=== PATIENT | female | born 1970 | race Caucasian/White ===

== ENCOUNTER 2017-12-24 21:45 | Observation (INO) | payer BC, SELFPAY ==
[2017-12-24 21:51] VITALS: BP 162/114; PULSE 112; RESP 14; TEMP 36.6; O2SAT 98; BMI 47.2
--- NOTE | 2017-12-24 22:03 | CT_ITS ---
CT abdomen pelvis wo con COMPARISON: None HISTORY: Abdominal pain nausea TECHNIQUE: Multiaxial scans obtained from hemidiaphragms the pelvic floor and were performed without IV or oral contrast. Sagittal and coronal reformats were evaluated as well. FINDINGS: The lower lung posada are clear. The liver spleen stomach and pancreas appear grossly normal. There are retained food particles within the stomach. The gallbladder somewhat contracted containing multiple gallstones. The adrenal glands are normal. The kidneys are normal in size and there are no calculi and is no obstructive uropathy. Small bowel appears normal. The appendix is normal. There is a large amount stool in the cecum and ascending colon and proximal transverse colon. There is mild diffuse diverticulosis of the sigmoid colon without diverticulitis. There is been previous hysterectomy. Urinary bladder is partially decompressed but otherwise appears normal. There is no free fluid in the pelvis. IMPRESSION: Obvious cholelithiasis, no other acute abdominal or pelvic pathology identified, I agree the [facility] report
[2017-12-24 22:20] LABS: Microscopic, Urine URINE MICROSCOPIC (MICROSCOPIC)
[2017-12-24 22:24] LABS: Appearance,Urine CLEAR (Clear); Bilirubin,Urine Negative (Negative); Blood, Urine Negative (Negative); Color,Urine YELLOW (Yellow); Glucose,Urine (UA) Negative (Negative); Ketones,Urine Negative (Negative); Leukocyte Esterase,Urine Negative (Negative); Nitrate,Urine Negative (Negative); Protein,Urine Negative (Negative); Urobilinogen,Urine 0.2 EU/dl (0.2)
[2017-12-24 22:26] LABS: Basophils # 0.1 K/mm3 (0-0.2); Basophils % 0.3 % (0.1-2.0); Eosinophils # 0.1 K/mm3 (0.0-0.4); Eosinophils % 0.8 % (0.1-12.0); Hemoglobin 15.5 g/dL (12.2-16.2); Lymphocytes # 3.9 K/mm3 (0.7-4.5); Lymphocytes % 25.2 K/mm3 (10-50); Mean Corpuscular HGB Conc 33.7 g/dL (31.8-35.4); Mean Corpuscular Hemoglobin 30.6 pg (27.0-31.2); Mean Corpuscular Volume 90.8 fl (81-99); Monocytes # 0.7 K/mm3 (0.1-1.0); Monocytes % 4.4 % (1.7-9.3); Neutrophils # 10.7 K/mm3 (1.8-7.8); Neutrophils % 69.3 % (37.0-80.0); Platelet Count 376 K/mm3 (142-424); Red Blood Count 5.06 M/mm3 (4.20-5.40); Red Cell Distribution Width 13.4 % (11.5-17.5); White Blood Count 15.4 K/mm3 (4.8-10.8)
--- NOTE | 2017-12-24 22:29 | PC.NURSE ---
TO RADIOLOGY PER W/C.
[2017-12-24 22:30] LABS: Chloride 102 mmol/L (98-107)
--- NOTE | 2017-12-24 22:33 | HMH.EDGENADL ---
ED Disposition Clinical Impression: Cholecystitis Disposition: Admitted as Observation Condition on Discharge: Good Referrals: Andrew De La Paz [Primary Care Provider] - - Critical Care Critical Care Time: No Attestation: On 12/24/17, the high probability of a clinically significant, sudden or life threatening deterioration of the following system(s) required my full and direct attention, intervention and personal management. The time I documented below is in addition to time spent performing reported procedures but includes the following listed in this critical care notation. Medical Decision Making - Medical Records Medical records reviewed: Yes: I reviewed the patient's medical records. Vital Signs: 12/24/17 21:51 12/24/17 23:32 Temperature 97.8 F Temperature Source Oral Pulse Rate [Right Brachial] 112 H 82 Respiratory Rate 14 24 Blood Pressure [Right Arm] 162/114 119/83 Blood Pressure Mean [Right Arm] 130 95 Blood Pressure Source [Right Arm] Automatic Cuff Automatic Cuff Blood Pressure Position [Right Arm] Supine Sitting 02 Sat by Pulse Oximetry 98 98 Oxygen Delivery Method Room Air Room Air - Lab Data Lab results reviewed: Yes: I reviewed the patient's lab results. Lab Results 12/24/17 22:10: WBC 15.4 H, RBC 5.06, Hgb 15.5, Hct 46.0, MCV 90.8, MCH 30.6, MCHC 33.7, RDW 13.4, Plt Count 376, MPV 8.0, Neut % (Auto) 69.3, Lymph % (Auto) 25.2, [place] % (Auto) 4.4, Eos % (Auto) 0.8, Baso % (Auto) 0.3, Neut # (Auto) 10.7 H, Lymph # (Auto) 3.9, [place] # (Auto) 0.7, Eos # (Auto) 0.1, Baso # (Auto) 0.1, Total Counted 100, Neutrophils % (Manual) 78 H, Band Neutrophils % 1.0, Lymphocytes % (Manual) 18, Monocytes % (Manual) 3, Platelet Estimate Normal, RBC Morphology Normal 12/24/17 22:10: Sodium 140, Potassium 4.1, Chloride 102, Carbon Dioxide 28, Anion Gap 14.1, BUN 11, Creatinine 0.71, Estimated Creat Clear 78, Estimated GFR 89, Est GFR ( Amer) 107, Glucose 102, Calcium 9.3, Total Bilirubin 0.3, AST 12 L, ALT 27, Alkaline Phosphatase 89, Total Protein 7.3, Albumin 4.0, Globulin 3.3 H, Albumin/Globulin Ratio 1.2, Amylase 32, Lipase 89 12/24/17 22:10: Total Creatine Kinase 36, CK-MB (CK-2) < 0.5, CK-MB (CK-2) Rel Index 1.4, Troponin I < 0.02 12/24/17 22:15: Urine Color Yellow, Urine Appearance Clear, Urine pH 7.0, Ur Specific [place] 1.010, Urine Protein Negative, Urine Glucose (UA) Negative, Urine Ketones Negative, Urine Blood Negative, Urine Nitrate Negative, Urine Bilirubin Negative, Urine Urobilinogen 0.2, Ur Leukocyte Esterase Negative, Urine WBC Occasional, Ur Squamous Epith Cells Occasional Result diagrams: 12/24/17 22:10 12/24/17 22:10 Orders (Tests/Meds): ED MEDICATIONS Discontinued Medications Generic Name Dose Route Start Last Admin Trade Name Freq PRN Reason Stop Dose Admin Ketorolac Tromethamine 30 mg 12/24/17 22:05 12/24/17 22:09 Toradol 30mg/Ml Vial IV 12/24/17 22:06 30 mg ONCE ONE Administration Morphine Sulfate 5 mg 12/24/17 23:13 12/24/17 23:28 Morphine 10mg/Ml Syringe IV 12/24/17 23:14 5 mg ONCE ONE Administration Ondansetron HCl 4 mg 12/24/17 22:05 12/24/17 22:09 Zofran 4mg/2ml Vial IV 12/24/17 22:06 4 mg ONCE ONE Administration Promethazine HCl 12.5 mg 12/24/17 23:13 12/24/17 23:28 Phenergan 25mg/Ml 1ml Vial IV 12/24/17 23:14 12.5 mg ONCE ONE Administration Sodium Chloride 25 ml 12/24/17 23:13 12/24/17 23:29 Sod Chloride 0.9% 25ml Bag IV 12/24/17 23:14 25 ml ONCE ONE Administration ORDERS Category Date Time Status CT abdomen pelvis wo con Stat Cat Scan 12/24/17 22:03 Taken 12-lead EKG Request [ECG Request by /Nse] Stat Y 12/24/17 22:05 Ordered - CT Data CT Scan: Abdomen, Pelvis Time Received: 23:[address] Reviewed: Yes: I have viewed the radiologist's interpretation Preliminary Findings: Abnormal - ECG Data Tracing #1 I reviewed this ECG and interpreted as documented below: Normal Sinus Rhythm:
[2017-12-24 22:36] LABS: Squamous Epithelial Cell,Urine Occasional #/hpf (0-5)
[2017-12-24 22:38] LABS: WBC,Urine Occasional #/hpf (0-3)
[2017-12-24 22:40] LABS: MANUAL DIFFERENTIAL MANUAL DIFFERENTIAL (MANUAL DIFF)
--- NOTE | 2017-12-24 22:40 | ED_ITS ---
ED Disposition Clinical Impression: Cholecystitis Disposition: Admitted as Observation Condition on Discharge: Good Referrals: Andrew De La Paz [Primary Care Provider] - - Critical Care Critical Care Time: No Attestation: On 12/24/17, the high probability of a clinically significant, sudden or life threatening deterioration of the following system(s) required my full and direct attention, intervention and personal management. The time I documented below is in addition to time spent performing reported procedures but includes the following listed in this critical care notation. Medical Decision Making - Medical Records Medical records reviewed: Yes: I reviewed the patient's medical records. Vital Signs: 12/24/17 21:51 12/24/17 23:32 Temperature 97.8 F Temperature Source Oral Pulse Rate [Right Brachial] 112 H 82 Respiratory Rate 14 24 Blood Pressure [Right Arm] 162/114 119/83 Blood Pressure Mean [Right Arm] 130 95 Blood Pressure Source [Right Arm] Automatic Cuff Automatic Cuff Blood Pressure Position [Right Arm] Supine Sitting 02 Sat by Pulse Oximetry 98 98 Oxygen Delivery Method Room Air Room Air - Lab Data Lab results reviewed: Yes: I reviewed the patient's lab results. Lab Results 12/24/17 22:10: WBC 15.4 H, RBC 5.06, Hgb 15.5, Hct 46.0, MCV 90.8, MCH 30.6, MCHC 33.7, RDW 13.4, Plt Count 376, MPV 8.0, Neut % (Auto) 69.3, Lymph % (Auto) 25.2, [place] % (Auto) 4.4, Eos % (Auto) 0.8, Baso % (Auto) 0.3, Neut # (Auto) 10.7 H, Lymph # (Auto) 3.9, [place] # (Auto) 0.7, Eos # (Auto) 0.1, Baso # (Auto) 0.1, Total Counted 100, Neutrophils % (Manual) 78 H, Band Neutrophils % 1.0, Lymphocytes % (Manual) 18, Monocytes % (Manual) 3, Platelet Estimate Normal, RBC Morphology Normal 12/24/17 22:10: Sodium 140, Potassium 4.1, Chloride 102, Carbon Dioxide 28, Anion Gap 14.1, BUN 11, Creatinine 0.71, Estimated Creat Clear 78, Estimated GFR 89, Est GFR ( Amer) 107, Glucose 102, Calcium 9.3, Total Bilirubin 0.3, AST 12 L, ALT 27, Alkaline Phosphatase 89, Total Protein 7.3, Albumin 4.0, Globulin 3.3 H, Albumin/Globulin Ratio 1.2, Amylase 32, Lipase 89 12/24/17 22:10: Total Creatine Kinase 36, CK-MB (CK-2) < 0.5, CK-MB (CK-2) Rel Index 1.4, Troponin I < 0.02 12/24/17 22:15: Urine Color Yellow, Urine Appearance Clear, Urine pH 7.0, Ur Specific [place] 1.010, Urine Protein Negative, Urine Glucose (UA) Negative, Urine Ketones Negative, Urine Blood Negative, Urine Nitrate Negative, Urine Bilirubin Negative, Urine Urobilinogen 0.2, Ur Leukocyte Esterase Negative, Urine WBC Occasional, Ur Squamous Epith Cells Occasional Result diagrams: 12/24/17 22:10 12/24/17 22:10 Orders (Tests/Meds): ED MEDICATIONS Discontinued Medications Generic Name Dose Route Start Last Admin Trade Name Stephenq PRN Reason Stop Dose Admin Ketorolac Tromethamine 30 mg 12/24/17 22:05 12/24/17 22:09 Toradol 30mg/Ml Vial IV 12/24/17 22:06 30 mg ONCE ONE Administration Morphine Sulfate 5 mg 12/24/17 23:13 12/24/17 23:28 Morphine 10mg/Ml Syringe IV 12/24/17 23:14 5 mg ONCE ONE Administration Ondansetron HCl 4 mg 12/24/17 22:05 12/24/17 22:09 Zofran 4mg/2ml Vial IV 12/24/17 22:06 4 mg ONCE ONE Administration Promethazine HCl 12.5 mg 12/24/17 23:13 12/24/17 23:28 Phenergan 25mg/Ml 1ml Vial IV 12/24/17 23:14 12.5 mg ONCE ONE Administration Sodium Chloride 25
[2017-12-24 22:43] LABS: Amylase 32 U/L (25-125); Blood Urea Nitrogen 11 mg/dL (7-18); Lipase 89 u/L (73-393)
--- NOTE | 2017-12-24 22:43 | PC.NURSE ---
BACK FROM RADIOLOGY PER W/C.
[2017-12-24 22:45] LABS: Alanine Aminotransferase 27 U/L (12-78); Albumin/Globulin Ratio 1.2 (1.1-1.8); Alkaline Phosphatase 89 U/L (46-116); Anion Gap 14.1 mEq/L (5-15); Aspartate Amino Transferase 12 U/L (15-37); Bilirubin,Total 0.3 mg/dL (0.2-1.0); Calcium 9.3 mg/dL (8.5-10.1); Carbon Dioxide 28 mmol/L (21.0-32.0); Creatinine Clearance Estimated 78 mL/min (0-300); Creatinine,Serum 0.71 mg/dL (0.55-1.02); Estimated Glomerular Filt Rate 89 ml/min (>60); GFR (African American) 107 ML/MIN (>60); Globulin 3.3 gm/dl (1.3-3.2); Glucose 102 mg/dL (74-106); Potassium 4.1 mmoL/L (3.5-5.1); Sodium 140 mmol/L (136-145); Total Protein,Serum 7.3 gm/dL (6.4-8.2)
[2017-12-24 22:53] LABS: Lymphocytes % 18 % (10-50); Monocytes % 3 % (2-9); Neutrophils % 78 % (42-76); Platelet Estimate Normal; RBC Morphology Normal; Total Cells Counted 100
[2017-12-24 22:58] LABS: Creatine Kinase 36 U/L (26-192); Troponin I < 0.02 ng/ml (0.00-0.06)
--- NOTE | 2017-12-24 23:23 | PC.NURSE ---
CASE DISCUSSED WITH DR EDEN
[2017-12-24 23:32] VITALS: BP 119/83; PULSE 82; RESP 24; O2SAT 98
[2017-12-24 23:39] LABS: CKMB Relative Index 1.4 U/L (0-4.0); Creatine Kinase MB < 0.5 mg/ml (0.0-3.6)
[2017-12-25] VITALS (7 sets, daily range): BP systolic 109–133; BP diastolic 63–91; PULSE 63–78; RESP 18–20; TEMP 36.4–36.6; O2SAT 96–99; BMI 42.9
--- NOTE | 2017-12-25 03:11 | PC.NURSE ---
SHE IS A&OX3. AMBULATES INDEPENDENTLY. INDEPENDENT WITH ADLS. REPORTS ABDOMINAL PAIN IN THE MIDEPIGASTRIC AREA BUT STATES THAT HER ABDOMEN IS TENDER ALL OVER. SHE REPORTS THE PAIN RADIATES FROM HER ABDOMEN TO HER BACK AND THAT IT STARTED AT ABOUT 1300 ON 12/24 AND HAS NOT STOPPED. SHE HAS RECEIVED PRN PAIN MEDICATION AND ZOFRAN FOR NAUSEA. NO VOMITING. REPORTS HER LAST BM WAS ON 12/23 AND WAS NORMAL. SHE IS NPO FOR A DR. COOK CONSULT.
[2017-12-25 06:06] LABS: Basophils % 0.4 % (0.1-2.0); Eosinophils # 0.2 K/mm3 (0.0-0.4); Eosinophils % 1.7 % (0.1-12.0); Hematocrit 43.1 % (37.0-47.0); Lymphocytes # 3.9 K/mm3 (0.7-4.5); Lymphocytes % 37.2 K/mm3 (10-50); Mean Corpuscular HGB Conc 32.4 g/dL (31.8-35.4); Mean Corpuscular Hemoglobin 29.7 pg (27.0-31.2); Mean Corpuscular Volume 91.7 fl (81-99); Mean Platelet Volume 7.9 fl (7.4-10.4); Monocytes # 0.5 K/mm3 (0.1-1.0); Neutrophils # 5.9 K/mm3 (1.8-7.8); Neutrophils % 55.7 % (37.0-80.0); Platelet Count 296 K/mm3 (142-424); Red Cell Distribution Width 13.5 % (11.5-17.5); White Blood Count 10.6 K/mm3 (4.8-10.8)
--- NOTE | 2017-12-25 06:08 | PC.NURSE ---
PT IS BELCHING FREQUENTLY.
[2017-12-25 06:21] LABS: Alanine Aminotransferase 23 U/L (12-78); Albumin Level 3.6 gm/dL (3.4-5.0); Albumin/Globulin Ratio 1.1 (1.1-1.8); Alkaline Phosphatase 75 U/L (46-116); Anion Gap 9.5 mEq/L (5-15); Aspartate Amino Transferase 10 U/L (15-37); Bilirubin,Total 0.3 mg/dL (0.2-1.0); Blood Urea Nitrogen 12 mg/dL (7-18); Calcium 8.8 mg/dL (8.5-10.1); Carbon Dioxide 30 mmol/L (21.0-32.0); Chloride 103 mmol/L (98-107); Creatinine Clearance Estimated 89 mL/min (0-300); Creatinine,Serum 0.68 mg/dL (0.55-1.02); Estimated Glomerular Filt Rate 93 ml/min (>60); GFR (African American) 113 ML/MIN (>60); Globulin 3.3 gm/dl (1.3-3.2); Glucose 98 mg/dL (74-106); Potassium 3.5 mmoL/L (3.5-5.1); Sodium 139 mmol/L (136-145); Total Protein,Serum 6.9 gm/dL (6.4-8.2)
--- NOTE | 2017-12-25 07:37 | HMH.HP ---
*Admission Date: 12/25/17 *Chief complaint: Abdominal pain *History of present illness: 47-year-old female with a 5 week history of abdominal pain in the epigastric, right upper quadrant, periumbilical area presented to the ER last night because of worsening pain. Patient states approximately 5 weeks ago she began having bouts of abdominal pain which she initially attributed to a stomach virus. However over the over the course of these last 5 weeks she has recurring bouts of pain with associated nausea. She does not vomit as she is not a puker . She denies change in bowel habits. On presentation to the emergency department she was in quite a bit of discomfort and there was difficulty controlling her pain. CT scan suggested gallstones. Dr. Zayas was contacted. Patient has been admitted for pain control and surgical evaluation. [facility] History Medical History: Reports:: Hypertension Denies:: Cancer, Diabetes Mellitus Type 1, Diabetes Mellitus Type 2, Internal Pacemaker, MRSA Laterality Cases: Right: Arthroscopy Knee Other Surgeries: Yes: Hysterectomy-Total. No: Pacemaker Amputation: No Fractures: No - *Social History Educational Level: Completed High School Smoking Status: Current every day smoker Tobacco Type: cigarettes # Packs/Day (cigarettes): 1 Alcohol Intake: never Occupational Status: unemployed Housing: house - Psychiatric History Expresses thoughts of harming self/others: None Suicide Plan Description: No Plan *Family Hx:: Coronary Artery Disease Review of Systems - Review of Systems Review of systems:: pertinent systems reviewed and negative unless documented below - *Cardiovascular Denies chest pain - *Respiratory Denies change in phlegm color, Denies chest congestion, Denies cough - *Gastrointestinal Reports abdominal pain, Reports belching, Reports bloating, Reports cramping, Reports heartburn, Reports nausea, Denies change in bowel habits, Denies change in stools, Denies coffee ground vomit, Denies constipation, Denies difficulty swallowing, Denies vomiting blood, Denies bright, red blood in stools, Denies black, tarry stools, Denies vomiting - *Neurologic Denies seizure-like activity Meds Home Medications Medication Instructions Recorded Confirmed Type Lisinopril [Lisinopril 20mg Tab] 20 mg PO DAILY 12/24/17 12/24/17 History Loratadine/Pseudoephedrine 1 each PO DAILY 12/24/17 12/24/17 History [Loratadine-D 24Hr Tablet] Allergies Allergy/AdvReac Type Severity Reaction Status Date / Time latex Allergy Mild Verified 12/24/17 22:01 Exam Vital signs and Labs for Last 24 Hours: Temp Pulse Resp BP Pulse Ox 97.8 F 78 18 119/84 98 12/25/17 00:51 12/25/17 00:51 12/25/17 00:51 12/25/17 00:51 12/25/17 02:07 Laboratory Results - last 24 hr 12/25/17 05:55: WBC 10.6 D, RBC 4.70, Hgb 14.0, Hct 43.1, MCV 91.7, MCH 29.7, MCHC 32.4, RDW 13.5, Plt Count 296, MPV 7.9, Neut % (Auto) 55.7, Lymph % (Auto) 37.2, [place] % (Auto) 5.0, Eos % (Auto) 1.7, Baso % (Auto) 0.4, Neut # (Auto) 5.9, Lymph # (Auto) 3.9, [place] # (Auto) 0.5, Eos # (Auto) 0.2, Baso # (Auto) 0.0 12/25/17 05:55: Sodium 139, Potassium 3.5, Chloride 103, Carbon Dioxide 30, Anion Gap 9.5, BUN 12, Creatinine 0.68, Estimated Creat Clear 89, Estimated GFR 93, Est GFR ( Amer) 113, Glucose 98, Calcium 8.8, Total Bilirubin 0.3, AST 10 L, ALT 23, Alkaline Phosphatase 75, Total Protein 6.9, Albumin 3.6, Globulin 3.3 H, Albumin/Globulin Ratio 1.1 I & O for Last 24 hours: Intake & Output 12/22/17 12/23/17 12/24/17 12/25/17 11:59 11:59 11:59 11:59 Intake Total 330 / 330 Balance 330 / 330 Narrative: Patient is sitting up in bed and appears uncomfortable. ENT exam is unremarkable. Lungs are clear to auscultation. Heart has a regular rate and rhythm. Abdomen is obese, soft with mild right sided periumbilical and epigastric tenderness. L sounds are present back is without CVA tenderness. H&P: Result
--- NOTE | 2017-12-25 07:41 | P.HP_ITS ---
*Admission Date: 12/25/17 *Chief complaint: Abdominal pain *History of present illness: 47-year-old female with a 5 week history of abdominal pain in the epigastric, right upper quadrant, periumbilical area presented to the ER last night because of worsening pain. Patient states approximately 5 weeks ago she began having bouts of abdominal pain which she initially attributed to a stomach virus. However over the over the course of these last 5 weeks she has recurring bouts of pain with associated nausea. She does not vomit as she is not a puker . She denies change in bowel habits. On presentation to the emergency department she was in quite a bit of discomfort and there was difficulty controlling her pain. CT scan suggested gallstones. Dr. Zayas was contacted. Patient has been admitted for pain control and surgical evaluation. [facility] History Medical History: Reports:: Hypertension Denies:: Cancer, Diabetes Mellitus Type 1, Diabetes Mellitus Type 2, Internal Pacemaker, MRSA Laterality Cases: Right: Arthroscopy Knee Other Surgeries: Yes: Hysterectomy-Total. No: Pacemaker Amputation: No Fractures: No - *Social History Educational Level: Completed High School Smoking Status: Current every day smoker Tobacco Type: cigarettes # Packs/Day (cigarettes): 1 Alcohol Intake: never Occupational Status: unemployed Housing: house - Psychiatric History Expresses thoughts of harming self/others: None Suicide Plan Description: No Plan *Family Hx:: Coronary Artery Disease Review of Systems - Review of Systems Review of systems:: pertinent systems reviewed and negative unless documented below - *Cardiovascular Denies chest pain - *Respiratory Denies change in phlegm color, Denies chest congestion, Denies cough - *Gastrointestinal Reports abdominal pain, Reports belching, Reports bloating, Reports cramping, Reports heartburn, Reports nausea, Denies change in bowel habits, Denies change in stools, Denies coffee ground vomit, Denies constipation, Denies difficulty swallowing, Denies vomiting blood, Denies bright, red blood in stools, Denies black, tarry stools, Denies vomiting - *Neurologic Denies seizure-like activity Meds Home Medications Medication Instructions Recorded Confirmed Type Lisinopril [Lisinopril 20mg Tab] 20 mg PO DAILY 12/24/17 12/24/17 History Loratadine/Pseudoephedrine 1 each PO DAILY 12/24/17 12/24/17 History [Loratadine-D 24Hr Tablet] Allergies Allergy/AdvReac Type Severity Reaction Status Date / Time latex Allergy Mild Verified 12/24/17 22:01 Exam Vital signs and Labs for Last 24 Hours: Temp Pulse Resp BP Pulse Ox 97.8 F 78 18 119/84 98 12/25/17 00:51 12/25/17 00:51 12/25/17 00:51 12/25/17 00:51 12/25/17 02:07 Laboratory Results - last 24 hr 12/25/17 05:55: WBC 10.6 D, RBC 4.70, Hgb 14.0, Hct 43.1, MCV 91.7, MCH 29.7, MCHC 32.4, RDW 13.5, Plt Count 296, MPV 7.9, Neut % (Auto) 55.7, Lymph % (Auto) 37.2, [place] % (Auto) 5.0, Eos % (Auto) 1.7, Baso % (Auto) 0.4, Neut # (Auto) 5.9 , Lymph # (Auto) 3.9, [place] # (Auto) 0.5, Eos # (Auto) 0.2, Baso # (Auto) 0.0 12/25/17 05:55: Sodium 139, Potassium 3.5, Chloride 103, Carbon Dioxide 30, Anion Gap 9.5, BUN 12, Creatinine 0.68, Estimated Creat Clear 89, Estimated GFR 93, Est GFR ( Amer) 113, Glucose 98, Calcium 8.8, Total Bilirubin 0.3, AST 10 L, ALT 23, Alkaline Phosphatase 75, Total Protein 6.9, Albumin 3.6, Globulin 3.3 H, Albumin/Globulin Ratio 1.1 I & O for Last
--- NOTE | 2017-12-25 08:00 | US_ITS ---
US gallbladder Ordering Physician: Quentin Alexandra MD Patient Age: 47 years: Female HISTORY: ITS.REASON: abd painabdominal pain nausea. CT last night suggesting gallstones TECHNIQUE: Right upper quadrant ultrasound COMPARISON : The prior study is titled, name differently in PACS and that was not available for comparison until a manual specific search performed (account administrator notified) FINDINGS Pancreas. Head body and medial tail grossly unremarkable. Liver. No focal lesions. No biliary ductal dilatation.. Gallbladder. Numerous Multiple shadowing gallstones. These are more pronounced than even on the previous CT which revealed nonshadowing gallstones. There is borderline gallbladder wall thickening. The common duct appears is generous but normal diameter measuring 5.5 mm at hilum of liver. Right kidney. The right kidney appears relatively small on the submitted ultrasound images measuring only 8.5 seem in length. With what appears to be mild diffuse cortical thinning. It did not have this appearance on yesterday's CT. But it measured 10 seem in length on the CT study. No hydronephrosis or mass. IMPRESSION 1 Cholelithiasis. Numerous a prominent shadowing stones in the gallbladder. Borderline gallbladder wall thickening 2. Common duct generous but normal diameter 5.5 mm at hilum of liver. Liver unremarkable with No extra hepatic biliary ductal dilatation
--- NOTE | 2017-12-25 11:18 | HMH.GSCON ---
*Admission Date: 12/25/17 *Chief complaint: Abdominal pain, nausea *History of present illness: Patient is a 47-year-old white female. For about 5 weeks she has had intermittent abdominal pain. This is mostly located in the supraumbilical region, epigastrium, and right upper quadrant. It has been intermittent and usually self-limited. However yesterday she had onset of pain. It was much more severe and persistent. She presented to the emergency department due to the severity of her pain. She was found to have a mild leukocytosis. She underwent CT scan which revealed findings suggestive of gallstones. Her pain was intractable and she was admitted for inpatient management for pain control. The pain has slightly improved since admission although she has required ongoing narcotics and anti-emetics. She underwent a gallbladder ultrasound this morning. Reading is pending. Review of Systems - Review of Systems Review of systems:: pertinent systems reviewed and negative unless documented below - *Neurologic Denies seizure-like activity [facility] History Medical History: Reports:: Hypertension Denies:: Cancer, Diabetes Mellitus Type 1, Diabetes Mellitus Type 2, Internal Pacemaker, MRSA Laterality Cases: Right: Arthroscopy Knee Other Surgeries: Yes: Hysterectomy-Total. No: Pacemaker Amputation: No Fractures: No - *Social History Educational Level: Completed High School Smoking Status: Current every day smoker Tobacco Type: cigarettes # Packs/Day (cigarettes): 1 Alcohol Intake: never Occupational Status: unemployed Housing: house - Psychiatric History Expresses thoughts of harming self/others: None Suicide Plan Description: No Plan *Family Hx:: Coronary Artery Disease Meds Home Medications Medication Instructions Recorded Confirmed Type Lisinopril [Lisinopril 20mg Tab] 20 mg PO DAILY 12/24/17 12/24/17 History Loratadine/Pseudoephedrine 1 each PO DAILY 12/24/17 12/24/17 History [Loratadine-D 24Hr Tablet] Allergies Allergy/AdvReac Type Severity Reaction Status Date / Time latex Allergy Mild Verified 12/24/17 22:01 Exam Vital signs and Labs for Last 24 Hours: Temp Pulse Resp BP Pulse Ox 97.5 F L 63 18 133/91 96 12/25/17 08:20 12/25/17 08:20 12/25/17 08:20 12/25/17 08:20 12/25/17 08:20 Laboratory Results - last 24 hr 12/25/17 05:55: WBC 10.6 D, RBC 4.70, Hgb 14.0, Hct 43.1, MCV 91.7, MCH 29.7, MCHC 32.4, RDW 13.5, Plt Count 296, MPV 7.9, Neut % (Auto) 55.7, Lymph % (Auto) 37.2, [place] % (Auto) 5.0, Eos % (Auto) 1.7, Baso % (Auto) 0.4, Neut # (Auto) 5.9, Lymph # (Auto) 3.9, [place] # (Auto) 0.5, Eos # (Auto) 0.2, Baso # (Auto) 0.0 12/25/17 05:55: Sodium 139, Potassium 3.5, Chloride 103, Carbon Dioxide 30, Anion Gap 9.5, BUN 12, Creatinine 0.68, Estimated Creat Clear 89, Estimated GFR 93, Est GFR ( Amer) 113, Glucose 98, Calcium 8.8, Total Bilirubin 0.3, AST 10 L, ALT 23, Alkaline Phosphatase 75, Total Protein 6.9, Albumin 3.6, Globulin 3.3 H, Albumin/Globulin Ratio 1.1 I & O for Last 24 hours: Intake & Output 12/22/17 12/23/17 12/24/17 12/25/17 11:59 11:59 11:59 11:59 Intake Total 390 / 390 Balance 390 / 390 - Constitutional mild distress - *Routine Respiratory Exam Present: wheezes - *Routine Cardiovascular Exam Present: RRR, Normal S1, Normal S2 - *Routine Abdominal Exam Present: soft, tenderness Comments: Patient has tenderness in the epigastrium and right upper quadrant with voluntary guarding without rebound. Results - Labs 12/25/17 05:55 12/25/17 05:55 Laboratory Results - last 24 hr 12/25/17 05:55: WBC 10.6 D, RBC 4.70, Hgb 14.0, Hct 43.1, MCV 91.7, MCH 29.7, MCHC 32.4, RDW 13.5, Plt Count 296, MPV 7.9, Neut % (Auto) 55.7, Lymph % (Auto) 37.2, [place] % (Auto) 5.0, Eos % (Auto) 1.7, Baso % (Auto) 0.4, Neut # (Auto) 5.9, Lymph # (Auto) 3.9, [place] # (Auto) 0.5, Eos # (Auto) 0.2, Baso # (Auto) 0.0 12/25/17 05:55: Sodium 139, Potassium 3.5, Ch
--- NOTE | 2017-12-25 11:23 | P.CONS_ITS ---
*Admission Date: 12/25/17 *Chief complaint: Abdominal pain, nausea *History of present illness: Patient is a 47-year-old white female. For about 5 weeks she has had intermittent abdominal pain. This is mostly located in the supraumbilical region, epigastrium, and right upper quadrant. It has been intermittent and usually self-limited. However yesterday she had onset of pain. It was much more severe and persistent. She presented to the emergency department due to the severity of her pain. She was found to have a mild leukocytosis. She underwent CT scan which revealed findings suggestive of gallstones. Her pain was intractable and she was admitted for inpatient management for pain control. The pain has slightly improved since admission although she has required ongoing narcotics and anti-emetics. She underwent a gallbladder ultrasound this morning. Reading is pending. Review of Systems - Review of Systems Review of systems:: pertinent systems reviewed and negative unless documented below - *Neurologic Denies seizure-like activity [facility] History Medical History: Reports:: Hypertension Denies:: Cancer, Diabetes Mellitus Type 1, Diabetes Mellitus Type 2, Internal Pacemaker, MRSA Laterality Cases: Right: Arthroscopy Knee Other Surgeries: Yes: Hysterectomy-Total. No: Pacemaker Amputation: No Fractures: No - *Social History Educational Level: Completed High School Smoking Status: Current every day smoker Tobacco Type: cigarettes # Packs/Day (cigarettes): 1 Alcohol Intake: never Occupational Status: unemployed Housing: house - Psychiatric History Expresses thoughts of harming self/others: None Suicide Plan Description: No Plan *Family Hx:: Coronary Artery Disease Meds Home Medications Medication Instructions Recorded Confirmed Type Lisinopril [Lisinopril 20mg Tab] 20 mg PO DAILY 12/24/17 12/24/17 History Loratadine/Pseudoephedrine 1 each PO DAILY 12/24/17 12/24/17 History [Loratadine-D 24Hr Tablet] Allergies Allergy/AdvReac Type Severity Reaction Status Date / Time latex Allergy Mild Verified 12/24/17 22:01 Exam Vital signs and Labs for Last 24 Hours: Temp Pulse Resp BP Pulse Ox 97.5 F L 63 18 133/91 96 12/25/17 08:20 12/25/17 08:20 12/25/17 08:20 12/25/17 08:20 12/25/17 08:20 Laboratory Results - last 24 hr 12/25/17 05:55: WBC 10.6 D, RBC 4.70, Hgb 14.0, Hct 43.1, MCV 91.7, MCH 29.7, MCHC 32.4, RDW 13.5, Plt Count 296, MPV 7.9, Neut % (Auto) 55.7, Lymph % (Auto) 37.2, [place] % (Auto) 5.0, Eos % (Auto) 1.7, Baso % (Auto) 0.4, Neut # (Auto) 5.9 , Lymph # (Auto) 3.9, [place] # (Auto) 0.5, Eos # (Auto) 0.2, Baso # (Auto) 0.0 12/25/17 05:55: Sodium 139, Potassium 3.5, Chloride 103, Carbon Dioxide 30, Anion Gap 9.5, BUN 12, Creatinine 0.68, Estimated Creat Clear 89, Estimated GFR 93, Est GFR ( Amer) 113, Glucose 98, Calcium 8.8, Total Bilirubin 0.3, AST 10 L, ALT 23, Alkaline Phosphatase 75, Total Protein 6.9, Albumin 3.6, Globulin 3.3 H, Albumin/Globulin Ratio 1.1 I & O for Last 24 hours: Intake & Output 12/22/17 12/23/17 12/24/17 12/25/17 11:59 11:59 11:59 11:59 Intake Total 390 / 390 Balance 390 / 390 - Constitutional mild distress - *Routine Respiratory Exam Present: wheezes - *Routine Cardiovascular Exam Present: RRR, Normal S1, Normal S2 - *Routine Abdominal Exam Present: soft, tenderness Comments: Patient christianson
--- NOTE | 2017-12-25 15:29 | PC.NURSE ---
report called to adam @ [facility]. will transport pt to [facility] when room is available.
--- NOTE | 2017-12-25 16:31 | P.CONPHA_ITS ---
[facility] Pharmacy VTE Monitoring - Patient Demographics Admission date: 12/25/17 Report Date: 12/25/17 Time: 16:30 Allergies/Adverse Reactions: Patient Allergies latex Allergy (Mild, Verified 12/24/17 22:01) Height: 1.63 m Weight: 113.398 kg Patient Problems: Current Active Problems Cholecystitis (Acute) Cholelithiasis (Acute) - VTE Risk Labs: VTE Related Lab Results Hgb 14.0 g/dL (12.2-16.2) 12/25/17 05:55 Hct 43.1 % (37.0-47.0) 12/25/17 05:55 Plt Count 296 K/mm3 (142-424) 12/25/17 05:55 BUN 12 mg/dL (7-18) 12/25/17 05:55 Creatinine 0.68 mg/dL (0.55-1.02) 12/25/17 05:55 Estimated Creat Clear 89 mL/min (0-300) 12/25/17 05:55 Was VTE Risk Assessment Performed: No VTE Score: 2 VTE Risk Level: Low Risk - Prophylaxis Types of VTE Prophylaxis: TEDS Knee High Location of Applied Device: Bilateral Lower Extremeties - VTE Diagnosis Confirmed Comment: DIANNE HOSE ORDERED
--- NOTE | 2017-12-25 19:25 | PC.NURSE ---
PT FULL CODE, REPORT FROM ALICIA
--- NOTE | 2017-12-25 20:00 | PC.NURSE ---
SINCE PATIENT ARRIVED TO ROOM SHE HAS BEEN STABLE WITH COMPLAINTS OF BEING COLD, AND PAIN SHE RATED AT A 7. ATE CLEAR LIQUIDS WELL. VSS
[2017-12-26] VITALS (16 sets, daily range): BP systolic 105–147; BP diastolic 66–92; PULSE 57–70; RESP 12–20; TEMP 36.4–43; O2SAT 91–99
--- NOTE | 2017-12-26 05:22 | PC.NURSE ---
PT SLEPT INTERVALS THIS SHIFT. RESPIRATIONS EVEN AND UNLABORED, BREATH SOUNDS EQUAL AND CLEAR. IV SECURE AND PATENT LR@100/HR. PT C/O MID-LOWER ABD PAIN, PAIN MEDS GIVEN PER JAN ALLOWS. NPO SINCE MIDNIGHT FOR CHOLECYSTECTOMY TODAY. PT STABLE. WILL CONTINUE TO MONITOR. REPORT TO BE GIVEN TO ONCOMING NURSE.
[2017-12-26 06:47] LABS: Basophils % 0.6 % (0.1-2.0); Eosinophils # 0.2 K/mm3 (0.0-0.4); Eosinophils % 2.2 % (0.1-12.0); Hematocrit 40.4 % (37.0-47.0); Hemoglobin 12.8 g/dL (12.2-16.2); Lymphocytes # 3.8 K/mm3 (0.7-4.5); Lymphocytes % 50.8 K/mm3 (10-50); Mean Corpuscular HGB Conc 31.7 g/dL (31.8-35.4); Mean Corpuscular Hemoglobin 29.8 pg (27.0-31.2); Mean Corpuscular Volume 94.2 fl (81-99); Monocytes # 0.3 K/mm3 (0.1-1.0); Monocytes % 4.2 % (1.7-9.3); Neutrophils # 3.2 K/mm3 (1.8-7.8); Neutrophils % 42.2 % (37.0-80.0); Platelet Count 273 K/mm3 (142-424); Red Blood Count 4.29 M/mm3 (4.20-5.40); Red Cell Distribution Width 13.3 % (11.5-17.5); White Blood Count 7.6 K/mm3 (4.8-10.8)
[2017-12-26 06:48] LABS: MANUAL DIFFERENTIAL MANUAL DIFFERENTIAL (MANUAL DIFF)
[2017-12-26 06:57] LABS: Alanine Aminotransferase 23 U/L (12-78); Albumin Level 3.2 gm/dL (3.4-5.0); Albumin/Globulin Ratio 1.1 (1.1-1.8); Alkaline Phosphatase 70 U/L (46-116); Anion Gap 9.8 mEq/L (5-15); Aspartate Amino Transferase 11 U/L (15-37); Bilirubin,Total 0.5 mg/dL (0.2-1.0); Blood Urea Nitrogen 7 mg/dL (7-18); Calcium 8.3 mg/dL (8.5-10.1); Carbon Dioxide 29 mmol/L (21.0-32.0); Chloride 104 mmol/L (98-107); Creatinine Clearance Estimated 88 mL/min (0-300); Creatinine,Serum 0.69 mg/dL (0.55-1.02); Estimated Glomerular Filt Rate 92 ml/min (>60); GFR (African American) 111 ML/MIN (>60); Glucose 80 mg/dL (74-106); Potassium 3.8 mmoL/L (3.5-5.1); Sodium 139 mmol/L (136-145); Total Protein,Serum 6.2 gm/dL (6.4-8.2)
--- NOTE | 2017-12-26 06:58 | HMH.ACPN2 ---
Internal Medicine - PN: Subj *Date: 12/26/17 *Time: 06:58 Interval history: Patient is scheduled for laparoscopic cholecystectomy this morning. Her pain has improved since yesterday Exam Vital signs and Labs for Last 24 Hours: Temp Pulse Resp BP Pulse Ox 98.5 F 57 L 18 119/66 95 12/26/17 04:00 12/26/17 04:00 12/26/17 04:00 12/26/17 04:00 12/26/17 04:00 Laboratory Results - last 24 hr 12/26/17 06:00: WBC 7.6 D, RBC 4.29, Hgb 12.8, Hct 40.4, MCV 94.2, MCH 29.8, MCHC 31.7 L, RDW 13.3, Plt Count 273, MPV 8.0, Neut % (Auto) 42.2, Lymph % (Auto) 50.8 H, [place] % (Auto) 4.2, Eos % (Auto) 2.2, Baso % (Auto) 0.6, Neut # (Auto) 3.2, Lymph # (Auto) 3.8, [place] # (Auto) 0.3, Eos # (Auto) 0.2, Baso # (Auto) 0.0 12/26/17 06:00: Sodium 139, Potassium 3.8, Chloride 104, Carbon Dioxide 29, Anion Gap 9.8, BUN 7 D, Creatinine 0.69, Estimated Creat Clear 88, Estimated GFR 92, Est GFR ( Amer) 111, Glucose 80, Calcium 8.3 L, Total Bilirubin 0.5, AST 11 L, ALT 23, Alkaline Phosphatase 70, Total Protein 6.2 L, Albumin 3.2 L D, Globulin 3.0, Albumin/Globulin Ratio 1.1 I & O for Last 24 hours: Intake & Output 12/23/17 12/24/17 12/25/17 12/26/17 11:59 11:59 11:59 11:59 Intake Total 390 / 390 2707 / 2707 Output Total 0 / 0 Balance 390 / 390 2707 / 2707 Weight 250 lb Narrative: She does not appear to be in any distress her lungs are clear. Heart has a rate and rhythm Assessment and Plan (1) Cholelithiasis Current visit: Yes Status: Acute Category: Medical Code(s): K80.20 - Calculus of gallbladder without cholecystitis without obstruction - Assessment and plan all Dx Assessment and Plan for all problems:: Surgery today.
--- NOTE | 2017-12-26 07:43 | P.PN_ITS ---
Subjective Patient reports: still having pain (Patient states her pain is maintaining on narcotics.) Exam Vital signs and Labs for Last 24 Hours: Temp Pulse Resp BP Pulse Ox 98.5 F 57 L 18 119/66 95 12/26/17 04:00 12/26/17 04:00 12/26/17 04:00 12/26/17 04:00 12/26/17 04:00 Laboratory Results - last 24 hr 12/26/17 06:00: WBC 7.6 D, RBC 4.29, Hgb 12.8, Hct 40.4, MCV 94.2, MCH 29.8, MCHC 31.7 L, RDW 13.3, Plt Count 273, MPV 8.0, Neut % (Auto) 42.2, Lymph % (Auto ) 50.8 H, [place] % (Auto) 4.2, Eos % (Auto) 2.2, Baso % (Auto) 0.6, Neut # (Auto) 3.2, Lymph # (Auto) 3.8, [place] # (Auto) 0.3, Eos # (Auto) 0.2, Baso # (Auto) 0.0 12/26/17 06:00: Sodium 139, Potassium 3.8, Chloride 104, Carbon Dioxide 29, Anion Gap 9.8, BUN 7 D, Creatinine 0.69, Estimated Creat Clear 88, Estimated GFR 92, Est GFR ( Amer) 111, Glucose 80, Calcium 8.3 L, Total Bilirubin 0.5, AST 11 L, ALT 23, Alkaline Phosphatase 70, Total Protein 6.2 L, Albumin 3.2 L D, Globulin 3.0, Albumin/Globulin Ratio 1.1 I & O for Last 24 hours: Intake & Output 12/23/17 12/24/17 12/25/17 12/26/17 11:59 11:59 11:59 11:59 Intake Total 390 / 390 2707 / 2707 Output Total 0 / 0 Balance 390 / 390 2707 / 2707 Weight 250 lb - *Routine Abdominal Exam Present: soft, tenderness. Absent: rebound, guarding Progress Note: A&P (1) Cholelithiasis Status: Acute Assessment and plan: Cholecystectomy today. Current Visit: Yes
[2017-12-26 09:14] LABS: Eosinophils % 3 % (0-3); Lymphocytes % 44 % (10-50); Monocytes % 4 % (2-9); Neutrophils % 35 % (42-76); Platelet Estimate Normal; RBC Morphology Normal; Total Cells Counted 100
--- NOTE | 2017-12-26 11:48 | PC.NURSE ---
PT OFF UNIT AT THIS TIME. IN SURGERY.
--- NOTE | 2017-12-26 13:57 | PC.NURSE ---
PT OFF UNIT AT THIS TIME. IN SURGERY.
--- NOTE | 2017-12-26 14:04 | HMH.OPNOTE ---
Date of procedure: 12/26/17 Pre-op Diagnosis:: Chronic cholecystitis with gallstones Post-op diagnosis:: same Procedure performed:: Laparoscopic cholecystectomy Surgeon:: Filemon Zayas MD DIGITAL ADVERTISING ANALYST:: Deon Solorio Anesthesia: GETChevy Estimated blood loss (mL): 50 Clinical Note:: Patient is a 47-year-old white female who has had supraumbilical, epigastric, right upper quadrant pain for about 3 weeks. It became quite severe and was refractory. He presented to the emergency department where she underwent evaluation including blood work revealing a leukocytosis. She had a CT scan revealing obvious cholelithiasis. Her pain was refractory to narcotic administration and she was admitted for inpatient management. She did have clinical cholecystitis with tenderness and positive Gregg sign in the right upper quadrant. She underwent gallbladder ultrasound which revealed gallstones. She was treated with antibiotics for clinical cholecystitis and arrangement was made for cholecystectomy. Operative findings:: She had a distended gallbladder with omental adhesions. Operative note:: Consent was obtained and patient was taken to the operating room. She was positioned in a supine position. General anesthesia was induced via endotracheal tube. Abdomen was prepped and draped in the standard surgical fashion. Subumbilical skin incision was made. Dissection was carried down in an attempt to identify the fascia. She has scar tissue from prior laparoscopy. During was given for possible open abdominal injury. However due to her poor tissues and prior surgery dissection in the infraumbilical location was difficult. Therefore through a 1-2 mm incision in the left subcostal region Veress needle was inserted and CO2 pneumoperitoneum was achieved to 15 mmHg. Right upper quadrant 5 mm incision was made and 5 mm optical trocar was inserted. Intracranial contents were visualized. There appeared to be some omental adhesions underlying the umbilicus but otherwise unremarkable. Therefore 11 mm trocar was inserted in the umbilical area. 5 mm laparoscope was then replaced once again with the 10 mm 0? laparoscope and inserted through the abdominal trocar site. Additional 5 mm trocar was inserted in the right upper abdomen. 10 mm trocar was inserted in the epigastrium. Left upper quadrant Veress needle was removed the gallbladder was identified and found to be somewhat distended. The omental adhesions to the gallbladder and these were taken down using blunt dissection. Gallbladder fundus was grasped and retracted anteriorly and superiorly over the dome of the liver. Dissection was carried out dissecting free the omental adhesions. Ultimately infundibulum was retracted anterior laterally. Blunt dissection was carried out at the neck of the gallbladder. The cystic duct, cystic artery, and node of Calot were clearly identified. Cystic duct was multiply clipped and then divided. Cystic artery was carefully coagulated with a's ultrasonic harmonic jaison and divided. Gallbladder was dissected free from the liver in retrograde fashion using Vincent ultrasonic harmonic jaison. Gallbladder was placed within an Endo Catch retrieval device removed from the peritoneal cavity via the umbilical trocar site which required some extension of the fascial incision for delivery. Gallbladder fossa and perihepatic space were then irrigated and aspirated until clear. Trochars were removed as CO2 pneumoperitoneum was evacuated. Fascia at the umbilicus was closed with several 0 Vicryl [id number] sutures. Local anesthetic was infiltrated. Skin incisions were closed with 4-0 Monocryl in a subcuticular fashion. Steri-Strips and clean dry sterile dressings were applied. Condition: stable Disposition: PACU Specimens:: Gallbladder and contents Complications:: None immediate
--- NOTE | 2017-12-26 14:11 | P.OP_ITS ---
Date of procedure: 12/26/17 Pre-op Diagnosis:: Chronic cholecystitis with gallstones Post-op diagnosis:: same Procedure performed:: Laparoscopic cholecystectomy Surgeon:: Filemon Zayas MD RETURN TO VENDOR:: Deon Solorio Anesthesia: GETChevy Estimated blood loss (mL): 50 Clinical Note:: Patient is a 47-year-old white female who has had supraumbilical, epigastric, right upper quadrant pain for about 3 weeks. It became quite severe and was refractory. He presented to the emergency department where she underwent evaluation including blood work revealing a leukocytosis. She had a CT scan revealing obvious cholelithiasis. Her pain was refractory to narcotic administration and she was admitted for inpatient management. She did have clinical cholecystitis with tenderness and positive Gregg sign in the right upper quadrant. She underwent gallbladder ultrasound which revealed gallstones. She was treated with antibiotics for clinical cholecystitis and arrangement was made for cholecystectomy. Operative findings:: She had a distended gallbladder with omental adhesions. Operative note:: Consent was obtained and patient was taken to the operating room. She was positioned in a supine position. General anesthesia was induced via endotracheal tube. Abdomen was prepped and draped in the standard surgical fashion. Subumbilical skin incision was made. Dissection was carried down in an attempt to identify the fascia. She has scar tissue from prior laparoscopy. During was given for possible open abdominal injury. However due to her poor tissues and prior surgery dissection in the infraumbilical location was difficult. Therefore through a 1-2 mm incision in the left subcostal region Veress needle was inserted and CO2 pneumoperitoneum was achieved to 15 mmHg. Right upper quadrant 5 mm incision was made and 5 mm optical trocar was inserted. Intracranial contents were visualized. There appeared to be some omental adhesions underlying the umbilicus but otherwise unremarkable. Therefore 11 mm trocar was inserted in the umbilical area. 5 mm laparoscope was then replaced once again with the 10 mm 0? laparoscope and inserted through the abdominal trocar site. Additional 5 mm trocar was inserted in the right upper abdomen. 10 mm trocar was inserted in the epigastrium. Left upper quadrant Veress needle was removed the gallbladder was identified and found to be somewhat distended. The omental adhesions to the gallbladder and these were taken down using blunt dissection. Gallbladder fundus was grasped and retracted anteriorly and superiorly over the dome of the liver. Dissection was carried out dissecting free the omental adhesions. Ultimately infundibulum was retracted anterior laterally. Blunt dissection was carried out at the neck of the gallbladder. The cystic duct, cystic artery, and node of Calot were clearly identified. Cystic duct was multiply clipped and then divided. Cystic artery was carefully coagulated with a's ultrasonic harmonic jaison and divided. Gallbladder was dissected free from the liver in retrograde fashion using Vincent ultrasonic harmonic jaison. Gallbladder was placed within an Endo Catch retrieval device removed from the peritoneal cavity via the umbilical trocar site which required some extension of the fascial incision for delivery. Gallbladder fossa and perihepatic space were then irrigated and aspirated until clear. Trochars were removed as CO2 pneumoperitoneum was evacuated. Fascia at the umbilicus was closed with several 0 Vicryl [id number] sutures. Local anesthetic was infiltrated. Skin incisions were closed with 4- 0 Monocryl in a subcuticular fashion. Steri-Strips and clean dry sterile dressings were appl
--- NOTE | 2017-12-26 14:17 | HMH.ANESCL ---
[facility] Anesthesia Checklist - Structural Data Admitted From: Inpatient Planned Operative Procedure/s: lap jules Consent for Planned Operative Procedure(s) Verified: Yes Verified Documents: Surgical Consent - NPO Status Verified Time NPO: 12:00 - Airway Assessment C-Spine Mobility Assessed: Yes TMJ Mobility Assessed: Yes Dentition: Good Dentition - Neurological Assessment Level of Consciousness: Awake, Alert - Anesthesia Plan Anesthesia Risk discussed: Yes Anesthesia Plan: Verified ASA Class: II Anesthesia Type: General [facility] Anesthesia HX I have reviewed the patient's past medical history: Yes Medical History: Reports:: Hypertension Denies:: Cancer, Diabetes Mellitus Type 1, Diabetes Mellitus Type 2, Internal Pacemaker, MRSA Laterality Cases: Right: Arthroscopy Knee Other Surgeries: Yes: Hysterectomy-Total. No: Pacemaker Amputation: No Fractures: No *Family Hx:: Coronary Artery Disease
--- NOTE | 2017-12-26 14:19 | P.PN_ITS ---
[facility] Anesthesia Record Part I Intake, IV Amount: 1,400 Estimated blood loss (mL): 0 Urine output (mL): 0 Blood Pressure: 147/73 SaO2: 99 Pulse Rate: 67 Respiratory Rate: 12 Temperature: 97.6 F Patient is:: Awake, Stable Stable to PACU at:: 14:15
--- NOTE | 2017-12-26 14:20 | P.PN_ITS ---
[facility] Anesthesia Record Part II Discharge Time: 14:45 Destination: floor PACU nurse assessment reviewed?: Yes Patient Condition:: Good Anesthesia Complications:: None
--- NOTE | 2017-12-26 15:17 | PC.NURSE ---
1415-REPORT RECEIVED FROM NAVEED ADAMS/ISABELLE ANGEL
--- NOTE | 2017-12-26 15:20 | PC.NURSE ---
1420-MEDICATED PER MAR FOR NAUSEA W/ZOFRAN 4MG IV XONCE. VSS. RR-16 1425-COOL WASH CLOTH PLACED ON FOREHEAD AND BEHIND NECK FOR COMFORT R/T NAUSEA. WILL CONTINUE TO MONITOR.
--- NOTE | 2017-12-26 15:26 | PC.NURSE ---
1430-O2 TITRATED OFF, SATS STABLE ON RA 1435-PT REPORTS ABD PAIN AND RATES 7/10. MEDICATED PER MAR W/MORPHINE 2MG IV- RR 18
--- NOTE | 2017-12-26 15:27 | PC.NURSE ---
1440-OCCASIONAL PAC'S NOTED ON TELEMETRY. PT DENIES CHEST PAIN. NOTIFIED NAVEED ADAMS WITH NO FURTHER ORDERS AT THIS TIME. PT REPORTS NAUSEA IS EASING. PT REPORTS ABD PAIN REMAINS 7/10. MEDICATED PER MAR W/MORPHINE 2MG IV. RR 18. 1445-PT REPORTS ABD PAIN MINIMALLY EASING AND RATES 6/10. MEDICATED PER MAR W/MORPHINE 2MG IV. RR 16. PT OCCASIONALLY BELCHING.
--- NOTE | 2017-12-26 15:33 | PC.NURSE ---
1455-PT DENIES NAUSEA. REPORTS PAIN IS BEGINNING TO EASE AND DOZING OFF AT TIMES. PT RATES ABD PAIN 5/. DETAILED REPORT CALLED TO ISABELLE FUENTES.
--- NOTE | 2017-12-26 15:34 | SUR.PHASEI ---
1458-PT TRANSPORTED TO 2ND FLOOR ROOM [facility] BED W/RAILS UP PER ISABELLE CULVER AND ISABELLE MORGAN. PT LEFT IN CARE OF ISABELLE FUENTES W/BED LOCKED IN LOWEST POSITION. FAMILY AT BEDSIDE. ADDITIONAL WARM BLANKETS APPLIED TO PT AND PT EATING ICE CHIPS UPON ARRIVAL TO FLOOR W/OUT DIFFICULTY. PT BEGINNING TO FREQUENTLY BELCH AND REPORTS EASE OF PAIN. VSS. PT STABLE.
--- NOTE | 2017-12-26 16:18 | HMH.DCSUM ---
General - General Admission date: 12/25/17 Discharge date: 12/26/17 HPI HPI: Patient is a 47-year-old white female. For about 5 weeks she has had intermittent abdominal pain. This is mostly located in the supraumbilical region, epigastrium, and right upper quadrant. It has been intermittent and usually self-limited. However yesterday she had onset of pain. It was much more severe and persistent. She presented to the emergency department due to the severity of her pain. She was found to have a mild leukocytosis. She underwent CT scan which revealed findings suggestive of gallstones. Her pain was intractable and she was admitted for inpatient management for pain control. The pain has slightly improved the following day although she has required ongoing narcotics and anti-emetics. She underwent a gallbladder ultrasound the morning after admission. Objective Vital signs: Temp Pulse Resp BP Pulse Ox 97.6 F 60 18 127/76 97 12/26/17 14:55 12/26/17 14:55 12/26/17 14:55 12/26/17 14:55 12/26/17 14:55 - *Routine Abdominal Exam Present: soft, tenderness Hospital Course Hospital Course: Patient was admitted and started on intravenous antibiotics for clinical cholecystitis. She did undergo gallbladder ultrasound which confirmed multiple gallstones. White blood cell count had normalized. The following morning she was taken to the operating room and underwent laparoscopic cholecystectomy. She was found to have a distended gallbladder with adhesions. Please see operative dictation for complete details. Postoperatively she returned to the floor for convalescence. She was doing quite well early postoperatively. She had no nausea and her pain had improved. Arrangements were made for discharge home later that evening. Results Labs on day of discharge: Labs from last 24 hours 12/26/17 12/26/17 06:00 06:00 WBC 7.6 D RBC 4.29 Hgb 12.8 Hct 40.4 MCV 94.2 MCH 29.8 MCHC 31.7 L RDW 13.3 Plt Count 273 MPV 8.0 Neut % (Auto) 42.2 Lymph % (Auto) 50.8 H [place] % (Auto) 4.2 Eos % (Auto) 2.2 Baso % (Auto) 0.6 Neut # (Auto) 3.2 Lymph # (Auto) 3.8 [place] # (Auto) 0.3 Eos # (Auto) 0.2 Baso # (Auto) 0.0 Total Counted 100 Neutrophils % (Manual) 35 L Lymphocytes % (Manual) 44 Atypical Lymphs % 14.0 Monocytes % (Manual) 4 Eosinophils % (Manual) 3 Platelet Estimate Normal RBC Morphology Normal Sodium 139 Potassium 3.8 Chloride 104 Carbon Dioxide 29 Anion Gap 9.8 BUN 7 D Creatinine 0.69 Estimated Creat Clear 88 Estimated GFR 92 Est GFR ( Amer) 111 Glucose 80 Calcium 8.3 L Total Bilirubin 0.5 AST 11 L ALT 23 Alkaline Phosphatase 70 Total Protein 6.2 L Albumin 3.2 L D Globulin 3.0 Albumin/Globulin Ratio 1.1 DS: Diagnosis - Discharge Diagnosis (1) Cholelithiasis Status: Acute Meds Home Medications Medication Instructions Recorded Confirmed Type Amlodipine Besylate [Norvasc 2.5mg 1 tab PO DAILY 12/25/17 12/25/17 History tablet] Lisinopril/Hydrochlorothiazide 1 tab PO DAILY 12/25/17 12/25/17 History [Lisinopril-Hctz 20-25 mg Tab] Loratadine [Claritin 10mg Tablet] 10 mg PO DAILY 12/25/17 12/25/17 History Allergies Allergy/AdvReac Type Severity Reaction Status Date / Time latex Allergy Mild Verified 12/24/17 22:01 Discharge Plan - Patient Discharge Instructions ACTIVITY: No heavy lifting DIET: advance to your usual diet Additional Instructions: May return to work TuesdayJanuary 02 - Follow up Plan Follow up with: Filemon Zayas MD [Staff Physician] - 01/13/18 Disposition: Home, Self-Alf Medications: Home Medications Medication Instructions Recorded Confirmed Type Amlodipine Besylate [Norvasc 2.5mg 1 tab PO DAILY 12/25/17 12/25/17 History tablet] Lisinopril/Hydrochlorothiazide 1 tab PO DAILY 12/25/17 12/25/17 History [Lisin
--- NOTE | 2017-12-26 16:21 | P.DS_ITS ---
General - General Admission date: 12/25/17 Discharge date: 12/26/17 HPI HPI: Patient is a 47-year-old white female. For about 5 weeks she has had intermittent abdominal pain. This is mostly located in the supraumbilical region, epigastrium, and right upper quadrant. It has been intermittent and usually self-limited. However yesterday she had onset of pain. It was much more severe and persistent. She presented to the emergency department due to the severity of her pain. She was found to have a mild leukocytosis. She underwent CT scan which revealed findings suggestive of gallstones. Her pain was intractable and she was admitted for inpatient management for pain control. The pain has slightly improved the following day although she has required ongoing narcotics and anti-emetics. She underwent a gallbladder ultrasound the morning after admission. Objective Vital signs: Temp Pulse Resp BP Pulse Ox 97.6 F 60 18 127/76 97 12/26/17 14:55 12/26/17 14:55 12/26/17 14:55 12/26/17 14:55 12/26/17 14:55 - *Routine Abdominal Exam Present: soft, tenderness Hospital Course Hospital Course: Patient was admitted and started on intravenous antibiotics for clinical cholecystitis. She did undergo gallbladder ultrasound which confirmed multiple gallstones. White blood cell count had normalized. The following morning she was taken to the operating room and underwent laparoscopic cholecystectomy. She was found to have a distended gallbladder with adhesions. Please see operative dictation for complete details. Postoperatively she returned to the floor for convalescence. She was doing quite well early postoperatively. She had no nausea and her pain had improved. Arrangements were made for discharge home later that evening. Results Labs on day of discharge: Labs from last 24 hours 12/26/17 12/26/17 06:00 06:00 WBC 7.6 D RBC 4.29 Hgb 12.8 Hct 40.4 MCV 94.2 MCH 29.8 MCHC 31.7 L RDW 13.3 Plt Count 273 MPV 8.0 Neut % (Auto) 42.2 Lymph % (Auto) 50.8 H [place] % (Auto) 4.2 Eos % (Auto) 2.2 Baso % (Auto) 0.6 Neut # (Auto) 3.2 Lymph # (Auto) 3.8 [place] # (Auto) 0.3 Eos # (Auto) 0.2 Baso # (Auto) 0.0 Total Counted 100 Neutrophils % (Manual) 35 L Lymphocytes % (Manual) 44 Atypical Lymphs % 14.0 Monocytes % (Manual) 4 Eosinophils % (Manual) 3 Platelet Estimate Normal RBC Morphology Normal Sodium 139 Potassium 3.8 Chloride 104 Carbon Dioxide 29 Anion Gap 9.8 BUN 7 D Creatinine 0.69 Estimated Creat Clear 88 Estimated GFR 92 Est GFR ( Amer) 111 Glucose 80 Calcium 8.3 L Total Bilirubin 0.5 AST 11 L ALT 23 Alkaline Phosphatase 70 Total Protein 6.2 L Albumin 3.2 L D Globulin 3.0 Albumin/Globulin Ratio 1.1 DS: Diagnosis - Discharge Diagnosis (1) Cholelithiasis Status: Acute Meds Home Medications Medication Instructions Recorded Confirmed Type Amlodipine Besylate [Norvasc 2.5mg 1 tab PO DAILY 12/25/17 12/25/17 History tabl
== END 2017-12-26 17:45 | disposition home or self-care (01) ==
LOC: ER 12-25 00:41 → ICU 12-25 01:03 → 2ND 12-25 15:32
PROVIDERS: Surgery; Admitting Provider Family Medicine; Emergency Provider Emergency Medicine; PCP Pediatrics; Visit Provider Family Medicine
PROC: 0FT44ZZ Resection of Gallbladder, Percutaneous Endoscopic Approach (ICD-10-PCS; CPT 47562; principal; 2017-12-26 11:45)
DX: K80.10 Calculus of gallbladder with chronic cholecystitis without obstruction (principal); I10 Essential (primary) hypertension
CPT/HCPCS: 47562; 36415; 74176; 76705; 80053; 81001; 82150; 82550; 82553; 83690; 84484; 85007; 85025; 93005; 93041; 96365; 96374; 96375; 99284; G0378; J2405; J2710